=== PATIENT | female | born 2000 | race Two or more races ===

== ENCOUNTER 2020-07-05 17:12 | Emergency (ER) | payer MEDICAID, OTHER ==
[~2020-07-05] VITALS: Ht 170.2 cm; Wt 83.9 kg
[2020-07-05 18:47] VITALS: BP 145/65
[2020-07-05] MEDS ORDERED: IBUPROFEN 800 MG TAB PO ONE (19:30)
== END 2020-07-05 19:51 | disposition home or self-care (01) ==
LOC: ER 17:12
DX: S53.402A Unspecified sprain of left elbow, initial encounter (principal); M25.512 Pain in left shoulder; V49.9XXA Car occupant (driver) (passenger) injured in unspecified traffic accident, initial encounter; Y93.89 Activity, other specified; Y92.89 Other specified places as the place of occurrence of the external cause; Y99.8 Other external cause status
CPT/HCPCS: 81025

== ENCOUNTER 2020-10-30 15:27 | Emergency (ER) | payer SELFPAY ==
[~2020-10-30] VITALS: Ht 157.5 cm; Wt 83.9 kg
[2020-10-30 16:53] VITALS: BP 124/56
== END 2020-10-30 17:15 | disposition home or self-care (01) ==
LOC: ER 15:27
DX: J18.9 Pneumonia, unspecified organism (principal); Z20.822 Contact with and (suspected) exposure to COVID-19
CPT/HCPCS: 36415; 71045; 81025; 87426